=== PATIENT | male | born 1965 | race Two or more races ===

== ENCOUNTER → 2021-05-27 08:11 | Outpatient (BNVA) | payer OTHER, SELFPAY | PROVIDERS: PCP Nurse Practitioner Family; Visit Provider Nurse Practitioner Family ==

== ENCOUNTER 2021-06-27 06:07 | Outpatient (REF) | payer OTHER, SELFPAY ==
--- NOTE | ~2021-06-27 | XR_ITS ---
EXAMINATION: XR PELVIS XR HIP, RIGHT CLINICAL INFORMATION: Right hip pain. COMPARISON: Right hip MRI dated 04/08/2021. TECHNIQUE: AP view of the pelvis. AP and frog-leg lateral views of the right hip. FINDINGS: No acute fracture or dislocation. Mild right hip joint space narrowing with tiny marginal osteophytes, unchanged. No osseous erosion. Phleboliths within the pelvis. XR/XR pelvis 1-2V IMPRESSION: Mild right hip osteoarthritis, unchanged when compared to the prior MRI.
--- NOTE | ~2021-06-27 | XR_ITS ---
EXAMINATION: XR PELVIS XR HIP, RIGHT CLINICAL INFORMATION: Right hip pain. COMPARISON: Right hip MRI dated 04/08/2021. TECHNIQUE: AP view of the pelvis. AP and frog-leg lateral views of the right hip. FINDINGS: No acute fracture or dislocation. Mild right hip joint space narrowing with tiny marginal osteophytes, unchanged. No osseous erosion. Phleboliths within the pelvis. XR/XR hip RT min 2V IMPRESSION: Mild right hip osteoarthritis, unchanged when compared to the prior MRI.
== END 2021-06-27 06:08 | disposition home or self-care (01) ==
LOC: HO.HOSX 06:07
PROVIDERS: Visit Provider Physician Assistant
DX: M25.551 Pain in right hip (principal); K46.9 Unspecified abdominal hernia without obstruction or gangrene
CPT/HCPCS: 72170; 73502

== ENCOUNTER 2021-07-11 09:06 | Outpatient (REF) | payer OTHER, SELFPAY | END 2021-07-11 09:07 | disposition home or self-care (01) | LOC: HO.NEURO 09:06 | PROVIDERS: Visit Provider Nurse Practitioner Family | DX: Z13.89 Encounter for screening for other disorder (principal) ==

== ENCOUNTER → 2021-08-05 10:56 | Outpatient (BNVA) | payer OTHER, SELFPAY | PROVIDERS: PCP Nurse Practitioner Family; Referring Provider Nurse Practitioner Family; Visit Provider Surgery | DX: R10.31 Right lower quadrant pain (principal); G89.29 Other chronic pain | CPT/HCPCS: 99202 ==

== ENCOUNTER 2021-08-14 09:11 | Outpatient (REF) | payer OTHER, SELFPAY ==
--- NOTE | ~2021-08-14 | XR_ITS ---
EXAMINATION: XR LUMBOSACRAL SPINE WITH OBLIQUES CLINICAL INFORMATION: Low back pain COMPARISON: None TECHNIQUE: AP, both oblique, and lateral views of the lumbar spine. Lateral view of the lumbosacral junction. FINDINGS: Bone alignment is normal. No fracture or dislocation is seen. There is mild disc space narrowing at L5-S1. Disc spaces are otherwise normal. There is lower lumbar spine facet arthritis. XR/XR lumbar spine 4V min IMPRESSION: Mild degenerative disc disease at L5-S1 and lower lumbar spine facet arthritis.
--- NOTE | ~2021-08-14 | XR_ITS ---
EXAMINATION: XR THORACIC SPINE CLINICAL INFORMATION: Low back pain COMPARISON: None TECHNIQUE: 3 views of the thoracic spine were obtained. FINDINGS: Bone alignment is normal. No fracture or dislocation is seen. There is mild degenerative spondylosis and disc space narrowing of the midthoracic spine. There are degenerative changes of the visualized cervical spine with degenerative spondylosis and disc space narrowing from C4-C5 to C6-C7. Paraspinal soft tissues are normal. XR/XR thoracic spine 3V IMPRESSION: Mild degenerative changes of the mid thoracic spine.
== END 2021-08-14 09:12 | disposition home or self-care (01) ==
LOC: HO.HMGCX 09:11
PROVIDERS: PCP Nurse Practitioner Family; Visit Provider Nurse Practitioner Family
DX: M54.50 Low back pain, unspecified (principal); M54.6 Pain in thoracic spine; M79.2 Neuralgia and neuritis, unspecified; R10.31 Right lower quadrant pain; G89.29 Other chronic pain
CPT/HCPCS: 72072; 72110; 99212

== ENCOUNTER 2021-10-23 09:43 | Outpatient (REF) | payer OTHER, SELFPAY ==
--- NOTE | 2021-10-23 09:46 | EMG_ITS ---
This is a 56-year-old man who complains of right groin pain. PHYSICAL EXAMINATION: Neurological examination is unremarkable. IMPRESSION: Rule out femoral neuropathy. Nerve conduction EMG study: Normal electrodiagnostic study of the right lower extremity with no evidence of generalized neuropathy or lumbar radiculopathy. Absent sensory potentials in the lateral femoral cutaneous nerve of the thigh of questionable significance since he does not have symptoms consistent with meralgia paresthetica. Normal EMG of the right L1-L4 innervated muscles. MD GARRET Greenberg/PRUDENCE / [id number]
== END 2021-10-23 09:44 | disposition home or self-care (01) ==
LOC: HO.NEURO 09:43
PROVIDERS: Visit Provider Nurse Practitioner Family
DX: M79.2 Neuralgia and neuritis, unspecified (principal)
CPT/HCPCS: 95885; 95909

== ENCOUNTER 2021-11-04 07:53 | Outpatient (REF) | payer OTHER, SELFPAY ==
--- NOTE | ~2021-11-04 | CT_ITS ---
EXAMINATION: CT ABDOMEN AND PELVIS WITHOUT CONTRAST CLINICAL INFORMATION: Right lower quadrant pain COMPARISON: None TECHNIQUE: Multidetector volumetric imaging was performed from the superior aspect of the liver through the pubic symphysis. Sagittal and coronal reformatted images were obtained on the technologist's workstation. This CT examination was performed using dose optimization techniques as appropriate, variously including the following: *Automated exposure control *Adjustment of mA and/or kV according to patient size (this includes techniques or standardized protocols for targeted exams where dose is matched to indication/reason for exam; i.e. extremities or head) *Use of iterative reconstruction technique DLP: 604 mGy-cm FINDINGS: LUNG BASES: The visualized lung bases are unremarkable. LIVER, GALLBLADDER, AND BILIARY TREE: The liver is normal in size, shape, and attenuation. No focal hepatic lesion or biliary ductal dilatation is present. The gallbladder is unremarkable with no evidence of radiopaque gallstones, gallbladder wall thickening, or obvious pericholecystic inflammatory changes. PANCREAS: Unremarkable. SPLEEN: Unremarkable. ADRENAL GLANDS: Unremarkable. KIDNEYS AND URETERS: The kidneys are normal in size, shape, and attenuation. No hydronephrosis, hydroureter, or calculi seen. No perinephric stranding. BLADDER: Unremarkable. GASTROINTESTINAL TRACT: The small and large bowel are unremarkable. The appendix is unremarkable. ABDOMINAL WALL: No significant hernia is appreciated. LYMPH NODES: Normal. VASCULAR: Unremarkable. PELVIC VISCERA: The prostate gland is slightly enlarged measuring 3.5 x 4 cm. OSSEOUS STRUCTURES: There are degenerative changes at L5-S1. CT/CT abdomen pelvis wo con IMPRESSION: Prominent prostate gland otherwise unremarkable exam. Fleischner guidelines were followed.
== END 2021-11-04 07:54 | disposition home or self-care (01) ==
LOC: HO.CT 07:53
PROVIDERS: Visit Provider Surgery
DX: R10.31 Right lower quadrant pain (principal); G89.29 Other chronic pain
CPT/HCPCS: 74176

== ENCOUNTER → 2021-11-11 10:03 | Outpatient (BNVA) | payer OTHER, SELFPAY | PROVIDERS: PCP Nurse Practitioner Family; Visit Provider Surgery | DX: R10.31 Right lower quadrant pain (principal); G89.29 Other chronic pain | CPT/HCPCS: 99212 ==

== ENCOUNTER → 2022-03-27 12:50 | Outpatient (BNVA) | payer OTHER, SELFPAY | PROVIDERS: PCP Nurse Practitioner Family; Visit Provider Nurse Practitioner Family | DX: R51.9 Headache, unspecified (principal); M54.2 Cervicalgia; M54.50 Low back pain, unspecified | CPT/HCPCS: 99212 ==